=== PATIENT | male | born 1985 | race American Indian/Alaskan Native ===

== ENCOUNTER 2016-11-09 00:50 | Emergency (ER) | payer MEDICAID ==
[~2016-11-09] VITALS: Ht 180.3 cm; Wt 106.8 kg
[2016-11-09 01:10] VITALS: BP_SYST 143; BP_SYST 157; BP_DIAS 89; BP_DIAS 99
[2016-11-09 01:38] LABS: BASOPHILS # (AUTO) 0.1 K/uL (0.00-0.22); BASOPHILS % (AUTO) 1.4 % (0.0-2.0); EOSINOPHILS # (AUTO) 0.1 K/uL (0-0.4); EOSINOPHILS % (AUTO) 1.2 % (0.0-4.0); HEMATOCRIT 39.7 % (36-52); HEMOGLOBIN 12.8 g/dL (12.0-18.0); LYMPHOCYTES # (AUTO) 0.6 K/uL (2.0-11.5); LYMPHOCYTES % (AUTO) 12.7 % (20.5-51.1); MEAN CORPUSCULAR HEMOGLOBIN 26 pg (27-31); MEAN CORPUSCULAR HGB CONC 32 g/dL (33-37); MEAN CORPUSCULAR VOLUME 80 fL (80-94); MONOCYTES # (AUTO) 0.2 K/uL (0.8-1.0); MONOCYTES % (AUTO) 4.5 % (1.7-9.3); NEUTROPHILS # (AUTO) 4.1 K/uL (1.8-7.7); NEUTROPHILS % (AUTO) 80.2 % (42.2-75.2); PLATELET COUNT (AUTO) 314 K/uL (140-450); RED BLOOD CELL COUNT(AUTO) 4.96 MIL/uL (4.20-6.10); RED CELL DISTRIBUTION WIDTH 13.1 % (11.6-13.7); WHITE BLOOD COUNT (AUTO) 5.1 K/uL (4.8-10.8)
[2016-11-09 01:53] LABS: ANION GAP 9.1 (8-16); CARBON DIOXIDE 27.9 mmol/L (21-32); CREATININE 1.1 mg/dL (0.7-1.3)
[2016-11-09 01:59] LABS: ALBUMIN 3.1 g/dL (3.4-5.0); TOTAL BILIRUBIN 0.2 mg/dL (0.0-1.0)
[2016-11-09 02:24] LABS: APPEARANCE,URINE CLEAR (CLEAR); BILIRUBIN,URINE NEGATIVE (NEGATIVE); BLOOD, URINE NEGATIVE (NEGATIVE); COLOR,URINE YELLOW (YELLOW); LEUKOCYTE ESTERASE ,URINE NEGATIVE (NEGATIVE); NITRITE, URINE NEGATIVE (NEGATIVE); UGLUCOSE NEGATIVE (NEGATIVE)
[2016-11-09 02:54] LABS: RBC,URINE 0-5 (RARE) /HPF (0-5); WBC,URINE 0-5 (RARE) /HPF (0-5)
[2016-11-09] MEDS: NACL 0.9% 1,000 ML IV ONE (03:30)
[2016-11-09 04:29] LABS: BARBITURATE, URINE NEG. ng/ml (NEG <=200); BENZODIAZEPINE, URINE NEG. ng/mL (NEG <=200); CANNABINOID, URINE NEG. ng/mL (NEG <=50); COCAINE, URINE NEG. ng/mL (NEG <=300); OPIATE, URINE NEG. ng/mL (NEG <=2000); PHENCYCLIDINE SCREEN,URINE NEG. ng/mL (NEG <=25)
[2016-11-09 05:03] VITALS: BP 134/81
== END 2016-11-09 04:57 | disposition home or self-care (01) ==
LOC: MED 00:50
DX: R07.89 Other chest pain (principal); F15.90 Other stimulant use, unspecified, uncomplicated
CPT/HCPCS: 36415; 71010; 71260; 80053; 80305; 81001; 84443; 84484; 85025; 85379; 93005; 96360; 99285; C1758; J7030; Q0092; Q9967

== ENCOUNTER 2017-10-23 16:49 | Inpatient (IN) | payer BC, MEDICAID ==
[~2017-10-23] VITALS: Ht 180.3 cm; Wt 91.2 kg
[2017-10-23 17:14] VITALS: BP 130/88
--- NOTE | 2017-10-23 17:19 | NUR ---
Patient ambulated to bed 3. RN evaluating patient at bedside.
--- NOTE | 2017-10-23 17:28 | NUR ---
32YO M TO ER W/C/O RT LOWER LEG DISCOMFORT X 4 DAYS WITH DISCOLORATION; SEEN BY PRIMARY AND [place] [facility] [place] + PARTIALLY OCCLUSIVE DEEP VEIN THROMBOSIS ON RT LOWER EXTREMITY; - DVT, PT STATES THAT THER WAS "TOO MUCH OF A WAIT " AT [facility] SO HE CAME TO [facility]. PT DENIES ANY PAIN, CLAIMES DISCOMFORT IN RLE AND L LOWER RIB WITH DEEP BRETHS. NO OTHER CO AT THIS TIME. PT DENIES AN CP, FEVER, OR COUGH AT THIS TIME. ER MADE AWARE. WILL CONTINUE TO MONITOR HX; LUPOS RX; PREDNISONE
[2017-10-23] MEDS ORDERED: NACL 0.9% 1,000 ML IV ONE (17:35)
[2017-10-23 18:01] LABS: PROTHROMBIN TIME 9.8 secs (10.8-13.4)
[2017-10-23 18:03] LABS: ALBUMIN 3.6 g/dL (3.4-5.0); ANION GAP 7.7 (8-16); CARBON DIOXIDE 30.1 mmol/L (21-32); CREATININE 0.9 mg/dL (0.7-1.3); POTASSIUM 3.8 mmol/L (3.5-5.1); TOTAL BILIRUBIN 0.3 mg/dL (0.0-1.0)
[2017-10-23 18:12] LABS: WHITE BLOOD COUNT (AUTO) 5.3 K/uL (4.8-10.8)
[2017-10-23 18:13] LABS: BASOPHILS % (AUTO) 0.1 % (0.0-2.0); EOSINOPHILS % (AUTO) 0.3 % (0.0-4.0); HEMATOCRIT 40.6 % (36-52); HEMOGLOBIN 13.1 g/dL (12.0-18.0); LYMPHOCYTES # (AUTO) 0.5 K/uL (2.0-11.5); LYMPHOCYTES % (AUTO) 9.6 % (20.5-51.1); MEAN CORPUSCULAR HEMOGLOBIN 26 pg (27-31); MEAN CORPUSCULAR HGB CONC 33 g/dL (33-37); MEAN CORPUSCULAR VOLUME 79.9 fL (80-94); MONOCYTES # (AUTO) 0.3 K/uL (0.8-1.0); MONOCYTES % (AUTO) 4.9 % (1.7-9.3); NEUTROPHILS # (AUTO) 4.5 K/uL (1.8-7.7); NEUTROPHILS % (AUTO) 85.1 % (42.2-75.2); PLATELET COUNT (AUTO) 283 K/uL (140-450); RED BLOOD CELL COUNT(AUTO) 5.07 MIL/uL (4.20-6.10); RED CELL DISTRIBUTION WIDTH 14.9 % (11.6-13.7)
[2017-10-23] MEDS ORDERED: NACL 0.9% 1,000 ML IV SCH (18:16)
[2017-10-23] MEDS ORDERED: HYDROcodone/APAP 7.5/325 MG 1 TAB PO PRN (18:20)
[2017-10-23] MEDS ORDERED: ACETAMINOPHEN 325 MG TAB PO PRN (18:20)
[2017-10-23] MEDS ORDERED: ONDANSETRON 4 MG/2 ML VIAL IVP PRN (18:20)
--- NOTE | 2017-10-23 18:28 | NUR ---
PT BOUGHT PT FOOD
--- NOTE | 2017-10-23 18:35 | NUR ---
CT CONCENT SIGNED
--- NOTE | 2017-10-23 18:47 | NUR ---
Dr. Pat evaluating patient at bedside.
[2017-10-23] MEDS ORDERED: hePARIN / DEXT 5% PREMIX 250 ML IV ONE (18:50)
[2017-10-23] MEDS ORDERED: HEPARIN PER PHARMACY MC PRN (18:50)
--- NOTE | 2017-10-23 18:55 | NUR ---
PT TO CT VIA KYA IN STABLE CONDITION
[2017-10-23 19:01] LABS: CHOL/HDL RATIO 3.1 (1-4.5); FREE T4 (FREE THYROXINE) 1.03 ng/dL (0.76-1.46); MAGNESIUM 1.8 mg/dL (1.8-2.4); PHOSPHORUS 4.4 mg/dL (2.5-4.9); THYROID STIMULATING HORMONE 0.73 uIU/mL (0.34-3.74)
[2017-10-23] MEDS ORDERED: DEXTROSE 50% 50 ML SYR IVP PRN (19:05)
[2017-10-23] MEDS ORDERED: INSULIN LISPRO SLIDING SCALE 100 UNITS/ML VIAL SUBQ PRN (19:05)
--- NOTE | 2017-10-23 19:20 | NUR ---
RECEIVED REPORT FROM AM NURSE. PT RESTING COMFORTABLY IN BED. CALLED PHARMACY, WHO STATED THAT THEY ARE WORKING ON VERIFYING HEPARIN DRIP ORDER. WILL ADMIT PT AFTER MEDICATION STARTED.
[2017-10-23] MEDS ORDERED: hePARIN / DEXT 5% PREMIX 250 ML IV SCH (19:35)
--- NOTE | 2017-10-23 19:40 | NUR ---
Note vianney in EDM - 10/23/17 at 2057 by JOB Patient will be admitted to care of DR. LOFTON. Admited to TELE. Will go to room 106B. Belongings list completed. Report to MIRIAM AGUIRRE AT BEDSIDE.
--- NOTE | 2017-10-23 20:10 | NUR ---
ADMINISTERED HEPARIN BOLUS AND DRIP WITH 2 RN VERIFICATION ORDERED WITH EDUCATION. PT VERBALIZED UNDERSTANDING. ORDERED TIMED PT/PTT LAB DRAW PER RX PROTOCOL.
[2017-10-23 20:35] VITALS: BP 122/77
--- NOTE | 2017-10-23 20:35 | NUR ---
ADMITTED A 32M FROM ER. CAME BY [facility] DUE TO RIGHT LOWER EXTREMITY DVT. RT LOWER LEG HAS REDNESS AND SLIGHT EDEMA. BUT DENIES ANY PAIN. ON TELE MONITOR. NO OTHER MEDICAL PROBLEM EXCEPT SYSTEMIC LUPUS ERYTHEMATOSUS. ACCORDING TO PT HE IS PRE DIABETIC . MD ORDERED BLOOD GLUCOSE CHECK. HAS HEPARIN DRIP ALREADY STARTED IN ER, INFUSING ON THE LT AC320. ANOTHER HL ON THE RT AC320. BOTH CLEAR AND PATENT. AMBULATORY. ORIENTED TO HOSPITAL ROUTINES. CALL LIGHT AND URINAL PLACED WITHIN EASY REACH. BED ON LOW POSITION. MRSA NARES SPECIMEN COLLECTED AND SEND TO LAB. ENCOURAGED TO USE CALL LIGHT IF NEEDED. WILL CONTINUE TO MONITOR.
[2017-10-23 20:39] LABS: APPEARANCE,URINE CLEAR (CLEAR); BILIRUBIN,URINE NEGATIVE (NEGATIVE); BLOOD, URINE NEGATIVE (NEGATIVE); COLOR,URINE YELLOW (YELLOW); LEUKOCYTE ESTERASE ,URINE NEGATIVE (NEGATIVE); NITRITE, URINE NEGATIVE (NEGATIVE); PH,URINE 6.5 (5.0-9.0); UGLUCOSE NEGATIVE (NEGATIVE)
--- NOTE | 2017-10-23 20:40 | NUR ---
Patient will be admitted to care of DR. LOFTON. Admited to TELE. Will go to room 106B. Belongings list completed. Report to MIRIAM RN AT BEDSIDE.
[2017-10-23 20:44] LABS: BARBITURATE, URINE NEG. ng/ml (NEG <=200); BENZODIAZEPINE, URINE NEG. ng/mL (NEG <=200); CANNABINOID, URINE NEG. ng/mL (NEG <=50); COCAINE, URINE NEG. ng/mL (NEG <=300); OPIATE, URINE NEG. ng/mL (NEG <=2000); PHENCYCLIDINE SCREEN,URINE NEG. ng/mL (NEG <=25)
[2017-10-23] MEDS: DOCUSATE SODIUM 100 MG GELCAP PO SCH (21:00)
[2017-10-23] MEDS ORDERED: CEL250 PO (21:14)
[2017-10-23] MEDS ORDERED: OMEP20TC12 PO (21:14)
[2017-10-23] MEDS ORDERED: HYDR200T5 PO (21:14)
[2017-10-23] MEDS ORDERED: IBUP-2213 PO (21:14)
[2017-10-23] MEDS ORDERED: PRED20TA5 PO (21:14)
[2017-10-23] MEDS: BLOOD GLUCOSE MONITORING 1 DEV DEV FS SCH (21:24)
--- NOTE | 2017-10-23 21:24 | NUR ---
BLOOD SUGAR WAS CHECKED RESULT 122. NO INSULIN NEEDED. PROVIDED WITH SOME SANDWICH.
[2017-10-23] MEDS: RIVAROXABAN 15 MG TAB PO SCH (21:53)
--- NOTE | 2017-10-23 21:53 | NUR ---
HEPARIN DRIP WAS DISCONTINUED . THEN XARELTO STARTED PER MD ORDER.
--- NOTE | 2017-10-23 23:00 | NUR ---
MADE ROUNDS. PT IS SLEEPING. NO S/S OF ANY DISCOMFORT NOTED. WILL CONTINUE TO MONITOR.
[2017-10-24 00:10] VITALS: BP 119/72
--- NOTE | 2017-10-24 00:15 | NUR ---
PT IS AWAKE. WITH NO C/O ANY PAIN NOR DISCOMFORT NOTED.
--- NOTE | 2017-10-24 02:00 | NUR ---
MADE ROUNDS. PT IS AWAKE. DENIES ANY PAIN NOR DISCOMFORT . WILL CONTINUE TO MONITOR.
[2017-10-24 04:00] VITALS: BP 133/83
--- NOTE | 2017-10-24 04:10 | NUR ---
PT AWAKE. VITAL SIGNS STABLE. NO C/O ANY DISCOMFORT NOTED.
[2017-10-24] MEDS: BLOOD GLUCOSE MONITORING 1 DEV DEV FS SCH (06:21)
--- NOTE | 2017-10-24 06:21 | NUR ---
BLOOD SUGAR THIS AM 72. PT IS AAO X4. GIVEN SOME CRACKERS AND JUICE. WILL CONTINUE TO MONITOR.
[2017-10-24 06:35] LABS: BASOPHILS % (AUTO) 0.7 % (0.0-2.0); HEMATOCRIT 37.9 % (36-52); HEMOGLOBIN 12.5 g/dL (12.0-18.0); LYMPHOCYTES # (AUTO) 0.8 K/uL (2.0-11.5); LYMPHOCYTES % (AUTO) 22.1 % (20.5-51.1); MEAN CORPUSCULAR HEMOGLOBIN 25 pg (27-31); MEAN CORPUSCULAR HGB CONC 33 g/dL (33-37); MEAN CORPUSCULAR VOLUME 77.1 fL (80-94); MONOCYTES # (AUTO) 0.2 K/uL (0.8-1.0); MONOCYTES % (AUTO) 5.9 % (1.7-9.3); NEUTROPHILS # (AUTO) 2.4 K/uL (1.8-7.7); NEUTROPHILS % (AUTO) 70.3 % (42.2-75.2); PLATELET COUNT (AUTO) 206 K/uL (140-450); RED BLOOD CELL COUNT(AUTO) 4.91 MIL/uL (4.20-6.10); RED CELL DISTRIBUTION WIDTH 16.2 % (11.6-13.7); WHITE BLOOD COUNT (AUTO) 3.4 K/uL (4.8-10.8)
[2017-10-24 06:47] LABS: CREATININE 0.8 mg/dL (0.7-1.3)
[2017-10-24 06:51] LABS: CARBON DIOXIDE 27.5 mmol/L (21-32); POTASSIUM 3.5 mmol/L (3.5-5.1)
[2017-10-24 06:53] LABS: MAGNESIUM 1.9 mg/dL (1.8-2.4); PHOSPHORUS 4.2 mg/dL (2.5-4.9)
--- NOTE | 2017-10-24 07:15 | NUR ---
ENDORSED PT IN STABLE CONDITION TO AM NURSE FOR CONTINUITY OF CARE.
--- NOTE | 2017-10-24 07:16 | NUR ---
RECEIVED REPORT FROM THE APPLICATION SPECIALIST NURSE AT BEDSIDE FOR CONTINUITY OF CARE. PT IS AWAKE AND ORIENTED. INTRODUCED MYSELF AND UPDATED THE BOARD. PT C/O OF PAIN. DID NOT HAVE HIS MEDS ALL DAY YESTERDAY. WILL ADMINISTER MORNING MEDS. V/S WITHIN NORMAL LIMITS. IV ON R AC 20G AND L AC 20G SL. IV ON R AC, INFUSING NS 50ML. ALREADY HAVE D/C ORDERS FOR TODAY. WILL CONTINUE TO MONITOR PT.
--- NOTE | 2017-10-24 07:33 | NUR ---
PATIENT HAS BEEN SCREENED AND CATEGORIZED MODERATE NUTRITION RISK. PATIENT WILL BE SEEN WITHIN 3-5 DAYS OF ADMISSION. 10/26/17 10/28/[address]
[2017-10-24] MEDS ORDERED: RIVA15TA1 PO (07:43)
[2017-10-24 08:00] VITALS: BP 122/81
[2017-10-24] MEDS ORDERED: PANTOPRAZOLE 40 MG TABEC PO SCH (08:00)
[2017-10-24] MEDS: DOCUSATE SODIUM 100 MG GELCAP PO SCH ×2 (08:05→08:08)
[2017-10-24] MEDS: RIVAROXABAN 15 MG TAB PO SCH (08:06)
--- NOTE | 2017-10-24 08:10 | NUR ---
ADMINISTERED MORNING MEDS. HELD COLACE. PT REFUSED. GAVE XARELTO. GAVE EDUCATION REGARDING MED. PT VERBALIZED UNDERSTANDING. WILL CONTINUE TO MONITOR PT.
[2017-10-24] MEDS ORDERED: predniSONE 20 MG TAB PO SCH (09:00)
[2017-10-24] MEDS ORDERED: NON-FORMULARY ITEM (Omeprazole (Omeprazole) 1 TAB) PO SCH (09:00)
[2017-10-24] MEDS ORDERED: MYCOPHENOLATE 250 MG CAP PO SCH (09:00)
[2017-10-24] MEDS ORDERED: IBUPROFEN 600 MG TAB PO SCH (09:00)
[2017-10-24] MEDS ORDERED: HYDROXYCHLOROQUINE SULFATE 200 MG PO SCH (09:00)
--- NOTE | 2017-10-24 09:05 | NUR ---
CM NOTE PER [facility]# [phone], REVIEWS SHOULD ONLY BE SENT TO [facility]. INITIAL REVIEW, H&P AND DC SUMMARY FAXED TO [facility] [phone] [facility]# [phone].
--- NOTE | 2017-10-24 10:50 | NUR ---
D/C INSTRUCTIONS GIVEN TO PT. PT VERBALIZED UNDERSTANDING. REMOVED IVS. CANNULA INTACT. NO BLEEDING NOTED. REMOVED ID BAND, TELE MONITOR. PT WILL GET DRESSED AND WILL LET ME KNOW WHEN HE IS READY TO GO. WILL CONTINUE TO MONITOR PT.
--- NOTE | 2017-10-24 11:00 | NUR ---
WALKED PT OUT TO THE LOBBY. PER PT, HAS CAR PARKED IN FRONT OF ER. PT IN STABLE CONDITION. ALL PERSONAL BELONGINGS WITH PT.
== END 2017-10-24 11:00 | disposition home or self-care (01) | DRG 300 ==
LOC: MED 16:49 → MTU 18:16
PROVIDERS: ADMIT General Practice; ATTEND General Practice
DX: I82.411 Acute embolism and thrombosis of right femoral vein (principal); J98.11 Atelectasis; I82.431 Acute embolism and thrombosis of right popliteal vein; F15.90 Other stimulant use, unspecified, uncomplicated; M32.9 Systemic lupus erythematosus, unspecified; K21.9 Gastro-esophageal reflux disease without esophagitis; F17.210 Nicotine dependence, cigarettes, uncomplicated; I45.10 Unspecified right bundle-branch block; R07.9 Chest pain, unspecified
CPT/HCPCS: 36415; 71045; 71275; 80048; 80053; 80305; 81003; 82150; 82948; 83036; 83690; 83735; 83880; 84100; 84439; 84443; 84484; 85025; 85610; 85730; 87081; 93005; 96361; 96374; 99285; J1644; J1815; J7030; J7512; J7517; Q0092; Q9967

== ENCOUNTER 2018-03-15 23:08 | Emergency (ER) | payer BC, MEDICAID ==
[~2018-03-15] VITALS: Ht 180.3 cm; Wt 102.1 kg
[~2018-03-15 23:08] MED LIST: CEL250 PO; HYDR200T5 PO; IBUP-2213 PO; PRED20TA5 PO; RIVA15TA1 PO
[2018-03-15 23:10] VITALS: BP 113/70
--- NOTE | 2018-03-15 23:14 | NUR ---
PT PRESENTS TO ED WITH CHEST PAIN X5 HOURS. 10 PAIN. NON-RADIATING. PT STATES HX LUPUS. HE STATES TAKING METH X2 DAYS AGO. PT IS TACHY AT 108. A&OX4. POSITIONED IN BED WITH HOB ELEVATED. ER MD AWARE. CONTINUE TO MONITOR.
--- NOTE | 2018-03-15 23:14 | NUR ---
PT TAKEN TO BED 10
--- NOTE | 2018-03-15 23:19 | NUR ---
EKG PERFORMED AT BEDSIDE. PT COVERED IN GOWN DURING PROCEDURE
--- NOTE | 2018-03-15 23:22 | NUR ---
Dr. Carvalho evaluating patient at bedside.
[2018-03-15] MEDS ORDERED: KETOROLAC 30 MG/ML VIAL IVP ONE (23:25)
[2018-03-15] MEDS ORDERED: NACL 0.9% 1,000 ML IV ONE (23:25)
[2018-03-15 23:38] LABS: HEMATOCRIT 38.8 % (36-52); HEMOGLOBIN 12.5 g/dL (12.0-18.0); MEAN CORPUSCULAR HEMOGLOBIN 25 pg (27-31); MEAN CORPUSCULAR HGB CONC 32 g/dL (33-37); MEAN CORPUSCULAR VOLUME 78.3 fL (80-94); PLATELET COUNT (AUTO) 265 K/uL (140-450); RED BLOOD CELL COUNT(AUTO) 4.96 MIL/uL (4.20-6.10); RED CELL DISTRIBUTION WIDTH 15.4 % (11.6-13.7); WHITE BLOOD COUNT (AUTO) 9.6 K/uL (4.8-10.8)
[2018-03-15 23:49] LABS: CARBON DIOXIDE 27.5 mmol/L (21-32); CREATININE 1.2 mg/dL (0.7-1.3); LYMPHOCYTES % (MANUAL) 3 % (20-46); MONOCYTES % (MANUAL) 0 % (5-12); POTASSIUM 3.5 mmol/L (3.5-5.1)
[2018-03-15 23:55] LABS: ALBUMIN 3.1 g/dL (3.4-5.0); TOTAL BILIRUBIN 0.3 mg/dL (0.0-1.0)
[2018-03-16] LABS: PROTHROMBIN TIME 9.4 secs (10.8-13.4)
[2018-03-16] MEDS ORDERED: MORPHINE SULFATE 4 MG/ML SYR IVP ONE (00:10)
--- NOTE | 2018-03-16 00:30 | NUR ---
PT TAKEN TO CT
--- NOTE | 2018-03-16 00:46 | NUR ---
PT RETURN FROM CT
[2018-03-16 02:08] VITALS: BP 118/71
--- NOTE | 2018-03-16 02:08 | NUR ---
Patient discharged with v/s stable. Written and verbal after care instructions given and explained. Patient alert, oriented and verbalized understanding of instructions. Ambulatory with steady gait. All questions addressed prior to discharge. ID band removed. Patient advised to follow up with PMD. Rx of Motrin and Zofran given. Patient educated on indication of medication including possible reaction and side effects. Opportunity to ask questions provided and answered.
== END 2018-03-16 02:08 | disposition home or self-care (01) ==
LOC: MED 23:08
DX: R07.89 Other chest pain (principal); R06.02 Shortness of breath; R50.9 Fever, unspecified; R11.0 Nausea; M79.10 Myalgia, unspecified site; R53.1 Weakness; R05 Cough; Z79.899 Other long term (current) drug therapy
CPT/HCPCS: 36415; 71045; 71275; 80053; 83880; 84484; 85025; 85379; 85610; 85730; 87804; 96374; 96375; 99284; J1885; J2270; J7030; Q9967; 93005

== ENCOUNTER 2018-07-03 11:28 | Emergency (ER) | payer MEDICAID ==
[~2018-07-03] VITALS: Ht 180.3 cm; Wt 99.8 kg
[2018-07-03 11:30] VITALS: BP 131/81
[2018-07-03] MEDS ORDERED: OMEP20TC12 PO (11:52)
[2018-07-03] MEDS ORDERED: CEL250 PO (11:52)
[2018-07-03] MEDS ORDERED: IBUP-2213 PO (11:52)
[2018-07-03] MEDS ORDERED: HYDR200T5 PO (11:52)
[2018-07-03] MEDS ORDERED: fentaNYL 0.05 MG/ML VIAL IVP ONE (11:55)
[2018-07-03] MEDS ORDERED: ONDANSETRON 4 MG/2 ML VIAL IVP ONE (11:55)
[2018-07-03] MEDS ORDERED: [UNRECOGNIZED DRUG - CODE] SC (11:58)
[2018-07-03] MEDS ORDERED: PRED10TA5 PO (11:58)
--- NOTE | 2018-07-03 12:23 | NUR ---
LABS HAVE BEEN DRAWN, X-RAY AT BEDSIDE.
--- NOTE | 2018-07-03 12:26 | NUR ---
patient medicated for pain and nausea
[2018-07-03 12:27] LABS: BASOPHILS % (AUTO) 0.4 % (0.0-2.0); HEMATOCRIT 36.8 % (36-52); HEMOGLOBIN 12.2 g/dL (12.0-18.0); LYMPHOCYTES # (AUTO) 0.6 K/uL (2.0-11.5); LYMPHOCYTES % (AUTO) 13.8 % (20.5-51.1); MEAN CORPUSCULAR HEMOGLOBIN 26 pg (27-31); MEAN CORPUSCULAR HGB CONC 33 g/dL (33-37); MEAN CORPUSCULAR VOLUME 77.6 fL (80-94); MONOCYTES # (AUTO) 0.1 K/uL (0.8-1.0); MONOCYTES % (AUTO) 3.4 % (1.7-9.3); NEUTROPHILS # (AUTO) 3.3 K/uL (1.8-7.7); NEUTROPHILS % (AUTO) 81.4 % (42.2-75.2); PLATELET COUNT (AUTO) 271 K/uL (140-450); RED BLOOD CELL COUNT(AUTO) 4.74 MIL/uL (4.20-6.10); RED CELL DISTRIBUTION WIDTH 15.3 % (11.6-13.7)
[2018-07-03 12:42] LABS: ALBUMIN 2.9 g/dL (3.4-5.0); CARBON DIOXIDE 28.9 mmol/L (21-32); CREATININE 0.9 mg/dL (0.7-1.3); PROTHROMBIN TIME 9.3 secs (10.8-13.4); TOTAL BILIRUBIN 0.2 mg/dL (0.0-1.0)
[2018-07-03 12:45] LABS: POTASSIUM 2.9 mmol/L (3.5-5.1)
[2018-07-03] MEDS ORDERED: KCL 20 MEQ/WATER INJ PREMIX 100 ML IV ONE (12:50)
[2018-07-03] MEDS ORDERED: MAG SULF 2000 MG/WATER PREMIX 50 ML IV ONE (12:50)
--- NOTE | 2018-07-03 13:39 | NUR ---
PT RESTING WITH EYES CLOSED. EQUAL CHEST RISE AND FALL. BREATHING EVEN AND UNLABORED. SINUS TACH ON MONITOR. CONTINUE TO MONITOR.
--- NOTE | 2018-07-03 14:36 | NUR ---
SPOKE TO CHANG CHARGE NURSE AT [facility] REGARDING PATIENT WERE SENDING NEEDING CT.SCAN PULM.ANGIOGRAM WITH CONTRAST .
--- NOTE | 2018-07-03 14:50 | NUR ---
[facility] transport here for [place] [facility] [place]. Report given to EMT at this time. Patient left with VSS, awake and acting appropriate. Dr. Lo made aware.
--- NOTE | 2018-07-03 16:44 | NUR ---
PT REMAINS AT [facility].
--- NOTE | 2018-07-03 17:00 | NUR ---
RECIEVED CALL FROM ISRA OF [facility] CT.DEPT. RE: DELAY OF PROCEDURE TO BE DONE SECONDARY TO CONTRAST INJECTOR DOWN.BIOMED TO FIX FAILURE.DR. TOMLINSON MADE AWARE. DR. TOMLINSON STATED PATIENT WILL WAIT. ISRA AWARE.
[2018-07-03 17:45] VITALS: BP 110/66
--- NOTE | 2018-07-03 17:45 | NUR ---
Patient to be transferred to [facility]. Is being transferred due to PER EDMD ORDERS dr. blackman, receiving doctor is DR SHAH. Receiving facility has accepting physician and available space. ER physician has signed transfer form. Patient belongings inventoried and will be sent with patient. Copy of nursing notes, lab reports, EKG, Physicians Orders and X-rays to be sent with patient. Report called to CHANG AGUIRRE at receiving facility. [facility] has transported to [facility] for original CT down.
--- NOTE | 2018-07-04 12:20 | NUR ---
Late entry. Confirmed with RN that Mag Sulfate 50ml IVBPB completed at 1420.
== END 2018-07-03 17:45 | disposition short-term general hospital (02) ==
LOC: MED 11:28
DX: R07.9 Chest pain, unspecified (principal); R06.00 Dyspnea, unspecified; I82.4Z1 Acute embolism and thrombosis of unspecified deep veins of right distal lower extremity; M32.9 Systemic lupus erythematosus, unspecified
CPT/HCPCS: 36415; 71045; 80053; 83880; 84484; 85025; 85379; 85610; 85730; 96365; 96375; 99291; J2405; J3010; J3475; Q0092; 93005; 96374; 99284

== ENCOUNTER 2019-01-06 03:23 | Emergency (ER) | payer MEDICAID ==
[~2019-01-06] VITALS: Ht 180.3 cm; Wt 93.0 kg
[~2019-01-06 03:23] MED LIST changes: +OMEP20TC12 PO; +PRED10TA5 PO; -PRED20TA5 PO; -RIVA15TA1 PO; +[UNRECOGNIZED DRUG - CODE] SC
[2019-01-06 03:25] VITALS: BP 134/83
--- NOTE | 2019-01-06 03:25 | NUR ---
TO BED # 07 AMBULATORY
--- NOTE | 2019-01-06 04:05 | NUR ---
EKG PERFORMED AT BEDSIDE
--- NOTE | 2019-01-06 04:43 | NUR ---
33 Y/O M PRESENTS TO THE ER C/O COUGH AND SHORTNESS OF BREATHE X3 DAYS. PT COUGH PRODUCTIVE GREEN THICK PHLEGM. PT ALSO C/O OF SORE THROAT. PAIN LEVEL 7/410, HURTS WHEN COUGHING AND SWALLOWING. ALLERGIES: KEFLEX AND CEPHALEXIN. MED HX: LUPUS. HOB ELEVATED, BED IN LOWEST POSITION, BED RAIL UP X1. WAITING FOR ERMD TO EVALUATE PT. RX: ENOXAPARIN 100MG IM Q3 MONTHS ACETAMINOPHEN 650MG Q8 HOURS HYDROXYCHLOROQUINE 200MG BID IBUPROFEN 600MG Q6 HOURS OMPEPRAZOLE 20MG BID PREDNISONE 20MG BID
[2019-01-06 05:43] LABS: BARBITURATE, URINE NEG. ng/ml (NEG <=200); BENZODIAZEPINE, URINE NEG. ng/mL (NEG <=200); CANNABINOID, URINE NEG. ng/mL (NEG <=50); COCAINE, URINE NEG. ng/mL (NEG <=300); OPIATE, URINE NEG. ng/mL (NEG <=2000); PHENCYCLIDINE SCREEN,URINE NEG. ng/mL (NEG <=25)
[2019-01-06 06:15] VITALS: BP 134/83
--- NOTE | 2019-01-06 06:23 | NUR ---
Patient discharged with v/s stable. Written and verbal after care instructions given and explained. Patient verbalized understanding. Ambulatory with steady gait. All questions addressed prior to discharge. Advised to follow up with PMD. PATIENT WAS GIVEN A SUBSTANCE ABUSE RESOURCE PACKET.
== END 2019-01-06 06:15 | disposition home or self-care (01) ==
LOC: MED 03:23
DX: R06.00 Dyspnea, unspecified (principal); Z79.899 Other long term (current) drug therapy; Z88.1 Allergy status to other antibiotic agents
CPT/HCPCS: 71045; 80305; 87804; 93005; 99284; Q0092

== ENCOUNTER 2019-06-29 17:57 | Inpatient (IN) | payer MEDICAID, SELFPAY ==
[~2019-06-29] VITALS: Ht 180.3 cm; Wt 90.7 kg
[2019-06-29 18:05] VITALS: BP 143/93
[2019-06-29 19:21] LABS: BASOPHILS % (AUTO) 0.5 % (0.0-2.0); EOSINOPHILS % (AUTO) 0.5 % (0.0-4.0); HEMATOCRIT 37.6 % (36-52); LYMPHOCYTES % (AUTO) 13.9 % (20.5-51.1); MEAN CORPUSCULAR HEMOGLOBIN 24 pg (27-31); MEAN CORPUSCULAR HGB CONC 32 g/dL (33-37); MONOCYTES # (AUTO) 0.1 K/uL (0.8-1.0); MONOCYTES % (AUTO) 1.9 % (1.7-9.3); NEUTROPHILS # (AUTO) 5.8 K/uL (1.8-7.7); NEUTROPHILS % (AUTO) 83.2 % (42.2-75.2); PLATELET COUNT (AUTO) 459 K/uL (140-450); RED BLOOD CELL COUNT(AUTO) 5.01 MIL/uL (4.20-6.10); RED CELL DISTRIBUTION WIDTH 16.5 % (11.6-13.7); WHITE BLOOD COUNT (AUTO) 6.9 K/uL (4.8-10.8)
[2019-06-29] MEDS ORDERED: NACL 0.9% 2,000 ML IV ONE (19:30)
[2019-06-29] MEDS ORDERED: NACL 0.9% 1,000 ML IV ONE (19:30)
[2019-06-29] MEDS ORDERED: MORPHINE SULFATE 4 MG/ML SYR IVP ONE (19:30)
[2019-06-29] MEDS ORDERED: ONDANSETRON 4 MG/2 ML VIAL IVP ONE (19:30)
[2019-06-29] MEDS ORDERED: PIPERACILLIN/TAZOBACTAM 3.375 GM in DEXTROSE 5% 50 ML IV ONE (19:30)
[2019-06-29] MEDS ORDERED: VANCOMYCIN 1,000 MG in DEXTROSE 5% 250 ML IV ONE (19:30)
[2019-06-29] MEDS ORDERED: PIPERACILLIN/TAZOBACTAM 3.375 GM VIAL IV ONE (19:34)
[2019-06-29 19:39] LABS: PROTHROMBIN TIME 10.8 secs (10.8-13.4)
[2019-06-29 19:47] LABS: ANION GAP 15.7 (8-16); CARBON DIOXIDE 23.5 mmol/L (21-32); CREATININE 1.5 mg/dL (0.6-1.3); POTASSIUM 3.2 mmol/L (3.5-5.1); TOTAL BILIRUBIN 0.4 mg/dL (0.0-1.0)
[2019-06-29] MEDS ORDERED: KCL 20 MEQ/WATER INJ PREMIX 100 ML IV ONE (19:55)
[2019-06-29] MEDS ORDERED: ONDANSETRON 4 MG/2 ML VIAL IVP PRN (20:00)
[2019-06-29 20:15] LABS: FIBRINOGEN > 500 mg/dL (200-400)
[2019-06-29 20:16] LABS: D-DIMER 4530 ng/ml (0-400)
[2019-06-29 20:33] LABS: MAGNESIUM 1.6 mg/dL (1.8-2.4); PHOSPHORUS 3.3 mg/dL (2.5-4.9); THYROID STIMULATING HORMONE 3.34 uIU/mL (0.34-3.74)
[2019-06-29] MEDS ORDERED: VANCOMYCIN 1,000 MG VIAL ONE (21:01)
[2019-06-29 21:24] LABS: BARBITURATE, URINE NEGATIVE ng/ml (NEG <=200); BENZODIAZEPINE, URINE POSITIVE ng/mL (NEG <=200); CANNABINOID, URINE NEGATIVE ng/mL (NEG <=50); COCAINE, URINE NEGATIVE ng/mL (NEG <=300); OPIATE, URINE NEGATIVE ng/mL (NEG <=2000); PHENCYCLIDINE SCREEN,URINE POSITIVE ng/mL (NEG <=25)
[2019-06-29] MEDS: DOCUSATE SODIUM 100 MG GELCAP PO SCH (21:35)
[2019-06-29] MEDS: NACL 0.9% 1,000 ML IV SCH (21:35)
[2019-06-29 22:27] LABS: APPEARANCE,URINE HAZY (CLEAR); BILIRUBIN,URINE 2+ (NEGATIVE); BLOOD, URINE NEGATIVE (NEGATIVE); COLOR,URINE YELLOW (YELLOW); LEUKOCYTE ESTERASE ,URINE TRACE (NEGATIVE); NITRITE, URINE POSITIVE (NEGATIVE); UGLUCOSE NEGATIVE (NEGATIVE)
[2019-06-29 22:42] LABS: RBC,URINE 0-5 /HPF (0-5); WBC,URINE 0-5 /HPF (0-5)
[2019-06-29 22:43] LABS: CALCIUM OXALATE CRYSTALS,UR 0-2 /HPF (None Seen)
[2019-06-29] MEDS ORDERED: cefTRIAXone 1,000 MG VIAL ONE (23:34)
[2019-06-30] VITALS: BP 122/77
[2019-06-30] MEDS: HYDROcodone/APAP 7.5/325 MG 1 TAB PO PRN ×4 (00:05→22:16)
[2019-06-30] MEDS ORDERED: POTASSIUM CHLORIDE 10 MEQ TABER PO SCH (02:45)
[2019-06-30] MEDS ORDERED: MAGNESIUM OXIDE 400 MG TAB PO SCH (02:45)
[2019-06-30] MEDS: ENOXAPARIN 100 MG/ML SYR SUBQ SCH ×2 (04:15→15:57)
[2019-06-30 04:30] VITALS: BP 136/86
[2019-06-30] MEDS ORDERED: predniSONE 10 MG TAB ONE (04:53)
[2019-06-30] MEDS: ACETAMINOPHEN 325 MG TAB PO PRN ×2 (05:03→22:25)
[2019-06-30 08:00] VITALS: BP 136/70
[2019-06-30 08:09] LABS: BASOPHILS % (AUTO) 0.1 % (0.0-2.0); EOSINOPHILS % (AUTO) 0.5 % (0.0-4.0); HEMATOCRIT 34.1 % (36-52); LYMPHOCYTES # (AUTO) 0.5 K/uL (2.0-11.5); LYMPHOCYTES % (AUTO) 9.4 % (20.5-51.1); MEAN CORPUSCULAR HEMOGLOBIN 24 pg (27-31); MEAN CORPUSCULAR HGB CONC 32 g/dL (33-37); MEAN CORPUSCULAR VOLUME 75.1 fL (80-94); MONOCYTES # (AUTO) 0.1 K/uL (0.8-1.0); MONOCYTES % (AUTO) 2.4 % (1.7-9.3); NEUTROPHILS % (AUTO) 87.6 % (42.2-75.2); PLATELET COUNT (AUTO) 417 K/uL (140-450); RED BLOOD CELL COUNT(AUTO) 4.54 MIL/uL (4.20-6.10); RED CELL DISTRIBUTION WIDTH 16.6 % (11.6-13.7); WHITE BLOOD COUNT (AUTO) 5.7 K/uL (4.8-10.8)
[2019-06-30 08:15] LABS: ANION GAP 13.2 (8-16); CARBON DIOXIDE 22.6 mmol/L (21-32); POTASSIUM 3.8 mmol/L (3.5-5.1)
[2019-06-30 08:17] LABS: MAGNESIUM 1.2 mg/dL (1.8-2.4)
[2019-06-30] MEDS: FAMOTIDINE 20 MG TAB PO SCH (08:28)
[2019-06-30] MEDS: MYCOPHENOLATE 250 MG CAP PO SCH ×2 (08:28→22:13)
[2019-06-30] MEDS: DOCUSATE SODIUM 100 MG GELCAP PO SCH ×2 (08:28→22:14)
[2019-06-30] MEDS: HYDROXYCHLOROQUINE 200 MG TAB PO SCH ×2 (08:28→21:00)
[2019-06-30] MEDS: ZINC SULF 220 MG CAP PO SCH (08:29)
[2019-06-30] MEDS: AZITHROMYCIN 250 MG TAB PO SCH (08:29)
[2019-06-30] MEDS: ASCORBIC ACID 500 MG TAB PO SCH (08:29)
[2019-06-30 08:33] LABS: CHOL/HDL RATIO 3.3 (1-4.5)
[2019-06-30] MEDS ORDERED: predniSONE 10 MG TAB PO SCH (09:00)
[2019-06-30] MEDS ORDERED: MAG SULF 2000 MG/WATER PREMIX 50 ML IV SCH (09:00)
[2019-06-30 12:00] VITALS: BP 138/73
[2019-06-30] MEDS: NACL 0.9% 1,000 ML IV SCH (15:57)
[2019-06-30 16:00] VITALS: BP 135/80
[2019-06-30 20:00] VITALS: BP 142/85
[2019-06-30] MEDS ORDERED: LOVENOX 1MG/KG Q12H SUBQ SCH (21:00)
[2019-06-30] MEDS: predniSONE 10 MG TAB PO SCH (22:14)
[2019-06-30] MEDS ORDERED: LORazepam 1 MG TAB PO PRN (22:40)
[2019-07-01] VITALS: BP 127/69
[2019-07-01 04:00] VITALS: BP 123/80
[2019-07-01] MEDS: NACL 0.9% 1,000 ML IV SCH ×2 (07:00→16:04)
[2019-07-01] MEDS: ENOXAPARIN 100 MG/ML SYR SUBQ SCH ×2 (07:00→16:00)
[2019-07-01 07:21] LABS: BASOPHILS # (AUTO) 0.1 K/uL (0.00-0.22); BASOPHILS % (AUTO) 0.6 % (0.0-2.0); HEMATOCRIT 34.5 % (36-52); LYMPHOCYTES # (AUTO) 0.6 K/uL (2.0-11.5); LYMPHOCYTES % (AUTO) 5.9 % (20.5-51.1); MEAN CORPUSCULAR HEMOGLOBIN 24 pg (27-31); MEAN CORPUSCULAR HGB CONC 32 g/dL (33-37); MEAN CORPUSCULAR VOLUME 75.1 fL (80-94); MONOCYTES # (AUTO) 0.2 K/uL (0.8-1.0); MONOCYTES % (AUTO) 1.7 % (1.7-9.3); NEUTROPHILS # (AUTO) 9.5 K/uL (1.8-7.7); NEUTROPHILS % (AUTO) 91.8 % (42.2-75.2); PLATELET COUNT (AUTO) 418 K/uL (140-450); RED BLOOD CELL COUNT(AUTO) 4.59 MIL/uL (4.20-6.10); RED CELL DISTRIBUTION WIDTH 16.4 % (11.6-13.7); WHITE BLOOD COUNT (AUTO) 10.3 K/uL (4.8-10.8)
[2019-07-01 07:35] LABS: MAGNESIUM 1.8 mg/dL (1.8-2.4); PHOSPHORUS 3.5 mg/dL (2.5-4.9)
[2019-07-01 07:36] LABS: ANION GAP 14.7 (8-16); CARBON DIOXIDE 24.4 mmol/L (21-32); POTASSIUM 4.1 mmol/L (3.5-5.1)
[2019-07-01 08:00] VITALS: BP 126/81
[2019-07-01] MEDS: MYCOPHENOLATE 250 MG CAP PO SCH ×2 (09:13→20:52)
[2019-07-01] MEDS: predniSONE 10 MG TAB PO SCH ×2 (09:14→20:52)
[2019-07-01] MEDS: FAMOTIDINE 20 MG TAB PO SCH (09:14)
[2019-07-01] MEDS: ASCORBIC ACID 500 MG TAB PO SCH (09:14)
[2019-07-01] MEDS: ZINC SULF 220 MG CAP PO SCH (09:14)
[2019-07-01] MEDS: HYDROXYCHLOROQUINE 200 MG TAB PO SCH ×2 (09:14→20:52)
[2019-07-01] MEDS: DOCUSATE SODIUM 100 MG GELCAP PO SCH ×2 (09:14→20:52)
[2019-07-01] MEDS: AZITHROMYCIN 250 MG TAB PO SCH (09:14)
[2019-07-01 12:00] VITALS: BP 131/73
[2019-07-01] MEDS: HYDROcodone/APAP 7.5/325 MG 1 TAB PO PRN ×2 (13:37→21:40)
[2019-07-01 16:00] VITALS: BP 125/74
[2019-07-01 20:00] VITALS: BP 145/79
[2019-07-01] MEDS: ACETAMINOPHEN 325 MG TAB PO PRN (20:53)
[2019-07-02] VITALS: BP 121/76
[2019-07-02 04:00] VITALS: BP 131/78
[2019-07-02] MEDS: NACL 0.9% 1,000 ML IV SCH (04:17)
[2019-07-02] MEDS: ENOXAPARIN 100 MG/ML SYR SUBQ SCH ×2 (04:17→16:01)
[2019-07-02] MEDS: HYDROcodone/APAP 7.5/325 MG 1 TAB PO PRN ×2 (05:16→11:54)
[2019-07-02 07:41] LABS: MEAN CORPUSCULAR VOLUME 74.3 fL (80-94); RED BLOOD CELL COUNT(AUTO) 3.98 MIL/uL (4.20-6.10)
[2019-07-02 08:00] VITALS: BP 131/75
[2019-07-02 08:08] LABS: PROTHROMBIN TIME 10.7 secs (10.8-13.4)
[2019-07-02 08:22] LABS: ALBUMIN 2.1 g/dL (3.4-5.0); ANION GAP 14.3 (8-16); CARBON DIOXIDE 23.6 mmol/L (21-32); CREATININE 0.9 mg/dL (0.6-1.3); MAGNESIUM 1.7 mg/dL (1.8-2.4); PHOSPHORUS 4.2 mg/dL (2.5-4.9); POTASSIUM 3.9 mmol/L (3.5-5.1); TOTAL BILIRUBIN 0.3 mg/dL (0.0-1.0)
[2019-07-02 08:57] LABS: HEMATOCRIT 29.5 % (36-52); HEMOGLOBIN 9.5 g/dL (12.0-18.0); MEAN CORPUSCULAR HEMOGLOBIN 24 pg (27-31); MEAN CORPUSCULAR HGB CONC 32 g/dL (33-37); PLATELET COUNT (AUTO) 404 K/uL (140-450); RED CELL DISTRIBUTION WIDTH 16.4 % (11.6-13.7); WHITE BLOOD COUNT (AUTO) 10.3 K/uL (4.8-10.8)
[2019-07-02 09:13] LABS: LYMPHOCYTES % (MANUAL) 8 % (20-46); MONOCYTES % (MANUAL) 2 % (5-12)
[2019-07-02] MEDS: ASCORBIC ACID 500 MG TAB PO SCH (10:01)
[2019-07-02] MEDS: predniSONE 10 MG TAB PO SCH ×2 (10:01→21:30)
[2019-07-02] MEDS: FAMOTIDINE 20 MG TAB PO SCH (10:02)
[2019-07-02] MEDS: AZITHROMYCIN 250 MG TAB PO SCH (10:02)
[2019-07-02] MEDS: MYCOPHENOLATE 250 MG CAP PO SCH ×2 (10:02→21:30)
[2019-07-02] MEDS: ZINC SULF 220 MG CAP PO SCH (10:02)
[2019-07-02] MEDS: DOCUSATE SODIUM 100 MG GELCAP PO SCH ×2 (10:03→21:30)
[2019-07-02] MEDS: HYDROXYCHLOROQUINE 200 MG TAB PO SCH ×2 (10:03→21:30)
[2019-07-02] MEDS ORDERED: NACL 0.45% 1,000 ML IV SCH (11:30)
[2019-07-02 12:00] VITALS: BP 128/71
[2019-07-02] MEDS ORDERED: KETOROLAC 30 MG/ML VIAL IVP PRN (12:35)
[2019-07-02] MEDS ORDERED: MAGNESIUM OXIDE 400 MG TAB PO SCH (15:21)
[2019-07-02 16:00] VITALS: BP 130/70
[2019-07-02] MEDS: ACETAMINOPHEN 325 MG TAB PO PRN (17:14)
[2019-07-02] MEDS ORDERED: PIPERACILLIN/TAZOBACTAM 3.375 GM in DEXTROSE 5% 50 ML IV SCH (18:00)
== END 2019-07-02 21:50 | disposition left against medical advice (07) | DRG 133 ==
LOC: MED 17:57 → EEVIPCON 17:57 → MTU 20:00
PROVIDERS: ADMIT General Practice; ATTEND General Practice
DX: J96.01 Acute respiratory failure with hypoxia (principal); N17.0 Acute kidney failure with tubular necrosis; J18.9 Pneumonia, unspecified organism; I82.411 Acute embolism and thrombosis of right femoral vein; E44.1 Mild protein-calorie malnutrition; L03.115 Cellulitis of right lower limb; M32.9 Systemic lupus erythematosus, unspecified; E87.8 Other disorders of electrolyte and fluid balance, not elsewhere classified; E83.42 Hypomagnesemia; E87.1 Hypo-osmolality and hyponatremia; R65.10 Systemic inflammatory response syndrome (SIRS) of non-infectious origin without acute organ dysfunction; I82.431 Acute embolism and thrombosis of right popliteal vein; N39.0 Urinary tract infection, site not specified; Z68.27 Body mass index [BMI] 27.0-27.9, adult; Z86.718 Personal history of other venous thrombosis and embolism; Z88.8 Allergy status to other drugs, medicaments and biological substances; Z53.29 Procedure and treatment not carried out because of patient's decision for other reasons; Z79.899 Other long term (current) drug therapy; E87.6 Hypokalemia; F15.10 Other stimulant abuse, uncomplicated; F13.10 Sedative, hypnotic or anxiolytic abuse, uncomplicated; Z20.828 Contact with and (suspected) exposure to other viral communicable diseases
CPT/HCPCS: 36415; 36600; 71045; 80048; 80053; 80305; 81001; 82550; 82728; 82803; 83036; 83605; 83615; 83735; 83880; 84100; 84443; 84484; 85025; 85379; 85384; 85610; 85651; 85730; 86140; 87040; 87081; 87086; 93005; 93970; 96361; 96365; 96375; 99291; J0696; J1650; J2270; J2405; J2543; J3370; J3475; J3480; J7030; J7060; J7512; J7517; Q0092

== ENCOUNTER 2019-09-11 22:30 | Inpatient (IN) | payer MEDICAID, SELFPAY ==
[~2019-09-11] VITALS: Ht 180.3 cm; Wt 87.1 kg
[2019-09-11 22:57] VITALS: BP 157/96
--- NOTE | 2019-09-11 23:03 | NUR ---
TRIAGED AND SENT TO LAB.
--- NOTE | 2019-09-12 00:15 | NUR ---
COVERING FOR PRIMARY RN FOR LUNCH RELIEF---- 34 Y/O M PRESENTS TO ED WITH C/O RASH TO RT LEG AND LOWER BACK X1 WEEK. PT ON RX OF ACYCLOVIR SINCE 09/08. MEDHX- LUPUS ALLX- TYLENOL
[2019-09-12] MEDS ORDERED: GABAPENTIN 300 MG CAP PO ONE (00:35)
[2019-09-12] MEDS ORDERED: KETOROLAC 30 MG/ML VIAL IM ONE (00:35)
[2019-09-12] MEDS ORDERED: MORPHINE TAB ER 15 MG TABER PO ONE (00:40)
[2019-09-12] MEDS ORDERED: KETOROLAC 15 MG/ML VIAL IVP ONE (00:50)
[2019-09-12] MEDS ORDERED: ACYCLOVIR IV ONE (00:50)
[2019-09-12] MEDS ORDERED: MORPHINE SULFATE 4 MG/ML SYR IVP ONE (00:50)
[2019-09-12] MEDS ORDERED: ONDANSETRON 4 MG/2 ML VIAL IVP ONE (00:50)
[2019-09-12] MEDS ORDERED: NACL 0.9% IV ONE (00:50)
[2019-09-12] MEDS ORDERED: GABAPENTIN 100 MG CAP ONE (00:57)
[2019-09-12 01:03] LABS: BASOPHILS % (AUTO) 0.4 % (0.0-2.0); EOSINOPHILS % (AUTO) 0.1 % (0.0-4.0); HEMOGLOBIN 10.8 g/dL (12.0-18.0); LYMPHOCYTES # (AUTO) 0.7 K/uL (2.0-11.5); LYMPHOCYTES % (AUTO) 12.8 % (20.5-51.1); MEAN CORPUSCULAR HEMOGLOBIN 24 pg (27-31); MEAN CORPUSCULAR HGB CONC 32 g/dL (33-37); MEAN CORPUSCULAR VOLUME 74.8 fL (80-94); MONOCYTES # (AUTO) 0.2 K/uL (0.8-1.0); MONOCYTES % (AUTO) 3.7 % (1.7-9.3); NEUTROPHILS # (AUTO) 4.6 K/uL (1.8-7.7); PLATELET COUNT (AUTO) 377 K/uL (140-450); RED BLOOD CELL COUNT(AUTO) 4.54 MIL/uL (4.20-6.10); RED CELL DISTRIBUTION WIDTH 17.2 % (11.6-13.7); WHITE BLOOD COUNT (AUTO) 5.6 K/uL (4.8-10.8)
[2019-09-12] MEDS ORDERED: ACYCLOVIR 500 MG VIAL IV ONE (01:03)
[2019-09-12 01:18] LABS: ALBUMIN 3.3 g/dL (3.4-5.0); CARBON DIOXIDE 26.1 mmol/L (21-32); CREATININE 0.9 mg/dL (0.6-1.3); POTASSIUM 4.1 mmol/L (3.5-5.1); TOTAL BILIRUBIN 0.2 mg/dL (0.0-1.0)
[2019-09-12] MEDS ORDERED: ONDANSETRON 4 MG/2 ML VIAL IVP PRN (02:10)
[2019-09-12] MEDS ORDERED: PRED10TA5 PO (02:19)
--- NOTE | 2019-09-12 02:26 | NUR ---
MED RECONCILIATION AND BELONGINGS LIST COMPLETED
--- NOTE | 2019-09-12 02:37 | NUR ---
Dr. Anguiano examining patient.
[2019-09-12 02:49] LABS: PHOSPHORUS 4.6 mg/dL (2.5-4.9)
[2019-09-12] MEDS: NACL 0.9% 1,000 ML IV SCH ×2 (03:04→12:43)
[2019-09-12 03:24] LABS: PROTHROMBIN TIME 9.9 secs (10.8-13.4)
--- NOTE | 2019-09-12 04:00 | NUR ---
PT RESTING AT THIS TIME, NO SIGNS OF DISTRESS NOTED
[2019-09-12] MEDS ORDERED: ENOXAPARIN 100 MG/ML SQ (04:16)
[2019-09-12] MEDS ORDERED: IBUPROFEN 600 MG TAB PO PRN (04:30)
--- NOTE | 2019-09-12 07:20 | NUR ---
PATIENT ARRIVED FROM ED VIA WHEELCHAIR. REPORT GIVEN BY CARLA HARRIS. PATIENT IS AAOX4. INTRODUCED SELF. PLANS OF CARE DISCUSSED. IV INTACT AND PATENT TO LEFT AC. NO S/S OF DISTRESS NOTED. INITIAL ASSESSMENT TO FOLLOW. CALL LIGHT WITHIN REACH.
--- NOTE | 2019-09-12 07:29 | NUR ---
Patient will be admitted to care of DR VIERA. Admited to [facility]. Will go to room 131A. Belongings list completed. Report to HAL AGUIRRE.
[2019-09-12 07:30] VITALS: BP 125/89
[2019-09-12] MEDS ORDERED: PANTOPRAZOLE 40 MG TABEC PO SCH (07:30)
[2019-09-12 07:33] LABS: CHOL/HDL RATIO 3.4 (1-4.5)
[2019-09-12] MEDS: GABAPENTIN 100 MG CAP PO SCH ×2 (08:28→13:40)
[2019-09-12] MEDS ORDERED: predniSONE 10 MG TAB PO SCH (09:00)
[2019-09-12] MEDS ORDERED: ENOXAPARIN 100 MG/ML SYR SUBQ SCH (09:00)
[2019-09-12] MEDS ORDERED: ENOXAPARIN 100 MG/ML SQ SCH (09:00)
[2019-09-12] MEDS ORDERED: MYCOPHENOLATE 250 MG CAP PO SCH (09:00)
[2019-09-12] MEDS ORDERED: DOCUSATE SODIUM 100 MG GELCAP PO SCH (09:00)
[2019-09-12] MEDS ORDERED: HYDROXYCHLOROQUINE 200 MG TAB PO SCH (09:00)
[2019-09-12] MEDS ORDERED: KETOROLAC 30 MG/ML VIAL IVP PRN (09:25)
[2019-09-12] MEDS ORDERED: NACL 0.9% IV SCH (10:00)
[2019-09-12] MEDS ORDERED: ACYCLOVIR IV SCH (10:00)
--- NOTE | 2019-09-12 10:00 | NUR ---
PATIENT AAOX4. NO S/S OF DISTRESS NOTED.
--- NOTE | 2019-09-12 10:06 | NUR ---
PATIENT HAS BEEN SCREENED AND CATEGORIZED LOW NUTRITION RISK. PATIENT WILL BE SEEN WITHIN 7 DAYS OF ADMISSION. 09/18/[address]
--- NOTE | 2019-09-12 10:54 | NUR ---
PARTS DEPARTMENT MANAGER NOTE: Patient's Orientation Person Situation Place Time Information Provided By PATIENT Comments SW MET PATIENT AT BEDSIDE TO VERIFY DEMOGRAPHICS. Metal Drill Press Operator, Realtionship and Phone Number LISETTE ZIMMER [phone] Healthcare Power of Mixing Machine Attendant No Does Patient Have a POLST No Identifying Problems No Social Work Triggers Is A Social Work Consult Needed No Mandate Report Filed No Explanation Of Identifying Problems PATIENT IS A 34-YEAR-OLD MAEL ADMITTED FOR DESSEMINATED SHINGLES. PATIENT HAS MPHX OF SLE, DVT, AND METHAMPHETAMINE ABUSE. SW OFFERED SUBSTANCE ABUSE RESOURCES AND PATIENT STATED THAT HE HAD QUIT METHAMPHETAMINES. Admitted From Home Prior Resources/Services Used In Last 12 Months No Prior Resources Used Prior DME No Prior DME Used Living Situation Lives With Family House Patient Had Caregiver No Home Support No Caregiver Issues Financial Issues No Known Financial Issue Referral To The Financial Counselor Needed No Factors/Needs No D/C Needs Identified Drug/Alcohol Treatment Explanation And Or Other Factors Affecting/Possible DC Needs PATIENT REFUSED SUBSTANCE ABUSE RESOURCES. Pt/Rep Participated In Discharge Plan Yes Patient/Family Agress With Discharge Plan Yes Discharge Plan Comments TENTATIVE DISCHARGE PLAN IS FOR PATIENT TO RETURN HOME. DC Plan Status Initiated
--- NOTE | 2019-09-12 13:00 | NUR ---
PATIENT IN STABLE CONDITION. NO S/S OF DISTRESS NOTED.
--- NOTE | 2019-09-12 13:40 | NUR ---
DISCHARGE PLANNING: THIS IS A 34 Y/O MALE PATIENT FROM HOME, WHO CAME IN DUE TO RASH. PAST MEDICAL HISTORY INCLUDE SLE, DVT AND METHAMPHETAMINE ABUSE. INITIAL DIAGNOSIS OF DISSEMINATED SHINGLES. CURRENT LABS INCLUDE WBC 5.6, H/H 10.8/34.0, NA/K 140/4.1, BUN/CREA 13/0.9, ALB 3.3. CXR ON ADMISSION SHOWED MILD LINEAR ATELECTASIS AT THE RIGHT LUNG BASE. MRSA NARES PENDING. ON ACYCLOVIR. NO CONSULTS AT THIS TIME. DC PLAN BACK TO HOME ONCE STABLE.
[2019-09-12] MEDS ORDERED: HYDR-5092 PO (14:22)
[2019-09-12] MEDS ORDERED: ACYC-278 PO (14:22)
[2019-09-12 16:00] VITALS: BP 122/70
--- NOTE | 2019-09-12 17:45 | NUR ---
ALL DISCHARGE INSTRUCTIONS GIVEN, PRESCRIPTION GIVEN AND ALL BELONGINGS GIVEN. IV REMOVED, CANNULA INTACT AND ID BAND REMOVED. PATIENT AMBULATED TO THE [facility] FOR PSYCHOTHERAPIST. PATIENT IS DISCHARGED TO HOME PICKED UP BY HIS VIA PRIVATE VEHICLE. PATIENT IN STABLE CONDITION.
== END 2019-09-12 17:55 | disposition home or self-care (01) | DRG 723 ==
LOC: MED 22:30 → MMU 09-12 02:19
PROVIDERS: ADMIT Family Medicine; ATTEND Family Medicine
DX: B02.7 Disseminated zoster (principal); M32.9 Systemic lupus erythematosus, unspecified; E66.3 Overweight; I10 Essential (primary) hypertension; R73.03 Prediabetes; Z68.26 Body mass index [BMI] 26.0-26.9, adult; Z71.3 Dietary counseling and surveillance; Z88.8 Allergy status to other drugs, medicaments and biological substances; Z86.718 Personal history of other venous thrombosis and embolism; Z87.440 Personal history of urinary (tract) infections; Z87.01 Personal history of pneumonia (recurrent); Z82.49 Family history of ischemic heart disease and other diseases of the circulatory system; E44.1 Mild protein-calorie malnutrition
CPT/HCPCS: 36415; 71045; 80053; 82150; 83690; 83735; 83880; 84100; 84484; 85025; 85610; 85730; 87081; 93005; 96365; 96375; 99285; J0133; J1650; J1885; J2270; J2405; J7030; J7512; J7517; Q0092

== ENCOUNTER 2023-05-11 16:49 | Emergency (ER) | payer MEDICAID ==
[~2023-05-11] VITALS: Ht 177.8 cm; Wt 101.6 kg
[~2023-05-11 16:49] MED LIST changes: -CEL250 PO; +FERR325E14 PO; -HYDR200T5 PO; +HYDR200T65 PO; -IBUP-2213 PO; +OMEP-278 PO; -OMEP20TC12 PO; +RIVA15TA1 PO; +TELM40TA1 PO; -[UNRECOGNIZED DRUG - CODE] SC
[2023-05-11 16:57] VITALS: BP 139/110; PULSE 96; RESP 16; TEMP 97.9; O2SAT 97
[2023-05-11] MEDS: ONDANSETRON 4 MG/2 ML VIAL IVP ONE (17:28)
[2023-05-11] MEDS: MORPHINE SULFATE 4 MG/ML SYR IVP ONE (17:31)
[2023-05-11 17:41] VITALS: BP 136/101; PULSE 95; RESP 18; O2SAT 97
[2023-05-11] MEDS ORDERED: KETOROLAC 30 MG/ML VIAL IVP ONE (18:30)
[2023-05-11] MEDS ORDERED: IBUP-2213 PO (18:33)
[2023-05-11] MEDS ORDERED: METH-1681 PO (18:57)
[2023-05-11] MEDS ORDERED: ACET-10509 PO (18:57)
[2023-05-11] MEDS: methocarbamoL 500 MG TAB PO STA (19:44)
[2023-05-11] MEDS: ACETAMINOPHEN 325 MG TAB PO ONE (19:44)
== END 2023-05-11 19:42 | disposition home or self-care (01) ==
LOC: MED 16:49
DX: S49.92XA Unspecified injury of left shoulder and upper arm, initial encounter (principal); I10 Essential (primary) hypertension; Z86.718 Personal history of other venous thrombosis and embolism; Z79.899 Other long term (current) drug therapy; W01.0XXA Fall on same level from slipping, tripping and stumbling without subsequent striking against object, initial encounter; Y92.89 Other specified places as the place of occurrence of the external cause; Y93.89 Activity, other specified; Y99.8 Other external cause status
CPT/HCPCS: 73030; 90471; 90715; 96374; 96375; 99284; J2270; J2405